=== PATIENT | male | born 1995 | race Caucasian/White ===

== ENCOUNTER 2017-12-03 22:14 | Emergency (ER) | payer OTHER ==
[2017-12-03] MEDS ORDERED: NS(*) 0.9% 1000 ML BAG 1,000 ML IV ONE (22:43)
[2017-12-03] MEDS ORDERED: ONDANSETRON 4 MG/2 ML VIAL IVP ONE (22:45)
[2017-12-03] MEDS ORDERED: fentaNYL CITR 100 MCG/2 ML AMP IVP ONE (22:55)
--- NOTE | 2017-12-03 23:09 | ER Report ---
History and Physical Time Seen By MD: 22:45 Hx. of Stated Complaint: Pt returned from [place] thursday and diarrhea and nausea began on thursday. Pt states he thinks he has a parasite. No known fevers. No rashes. No reported other sickness from friends in [place]. Pt has been trying to keep drinking. Pt did not drink water in [place] but ate fruit and vegetables. HPI/ROS CHIEF COMPLAINT: Diarrhea, nausea, abdominal pain. HISTORY OF PRESENT ILLNESS: Patient is a 21-year-old male here with complaints of diffuse abdominal pain, nausea, diarrhea. He reportedly returned from [place] on Thursday this week and his nausea and diarrhea started on Thursday. Patient is tolerating oral intake however reports nausea with oral intake. Denies any blood in the stools however he does report having 8-10 loose bowel movements per day. Patient reports that he was vacationing in [facility] and denies drinking or eating out of the resort. He reports that he did eat fruit and vegetables. Patient is afebrile, hemodynamically stable at time of evaluation. Denies fevers , chills, shortness breath, chest pain. He does admit to sore throat and headaches. REVIEW OF SYSTEMS: Constitutional: No fever, no chills. Eyes: No discharge. ENT: No sore throat. Cardiovascular: No chest pain, no palpitations. Respiratory: No cough, no shortness of breath. Gastrointestinal: + diffuse abdominal pain, no vomiting, + nausea Genitourinary: No hematuria. Musculoskeletal: No back pain. Skin: No rashes. Neurological: No headache. Allergies: Coded Allergies: No Known Drug Allergies (Unverified , 12/03/17) Home Meds Active Scripts Ciprofloxacin Hcl (CIPROFLOXACIN HCL) 500 Mg Tablet, 500 MG PO Q12H for 5 Days, #10 TAB Prov:ARLEN GAYLE DO 12/03/17 Ondansetron (ZOFRAN ODT) 4 Mg Tab.rapdis, 4 MG PO Q6H Y for NAUSEA/VOMITING, # 20 TAB.ELLY 0 Refills Prov:ARLEN GAYLE DO 12/03/17 Constitutional Vital Sign - Last 24 Hours 12/03/17 12/03/17 12/03/17 12/03/17 22:20 22:21 22:23 22:29 Temp 98.6 Pulse 86 83 Resp 16 B/P (MAP) 152/87 (108) 152/87 154/93 (113) Pulse Ox 95 96 O2 Delivery Room Air 12/03/17 12/03/17 12/03/17 12/03/17 22:30 22:30 22:44 22:45 Temp 100.4 Pulse 81 B/P (MAP) 154/102 (119) 130/80 (97) Pulse Ox 93 12/03/17 12/03/17 12/03/17 12/03/17 22:59 23:00 23:14 23:15 Pulse 92 91 B/P (MAP) 149/99 (116) 135/80 (98) Pulse Ox 96 94 12/03/17 12/03/17 12/03/17 23:29 23:30 23:44 Pulse 81 B/P (MAP) 149/76 (100) Pulse Ox 94 94 Physical Exam General Appearance: The patient is alert, has no immediate need for airway protection and no signs of toxicity. No acute distress Eyes: Pupils equal and round no pallor or injection. ENT, Mouth: Mucous membranes are moist. Respiratory: There are no retractions, lungs are clear to auscultation. Cardiovascular: Regular rate and rhythm. Gastrointestinal: Abdomen is soft and + diffusely tender, no masses, bowel sounds normal. Neurological: No focal deficits Skin: Warm and dry, no rashes. Musculoskeletal: Neck is supple non tender. Extremities are nontender, nonswollen and have full range of motion. DIFFERENTIAL DIAGNOSIS: After history and physical exam differential diagnosis was considered for viral gastroenteritis, food poisoning, food borne bacterial illness, intra-abdominal infection, parasite. Medical Decision Making Data Points Result Diagram: 12/03/17 2305 12/03/17 2305 Laboratory Hematology Test 12/03/17 22:22 12/03/17 23:05 12/03/17 23:50 Urine Color Colorless Urine Clarity Clear Urine pH 6.0 pH (4.8-9.5) Urine Specific [place] 1.004 Urine Protein Negative mg/dL (NEGATIVE) Urine Glucose (UA) Negative mg/dL (NEGATIVE) Urine Ketones Negative mg/dL (NEGATIVE) Urine Blood Negative (NEGATIVE) Urine Nitrite Negative (NEGATIVE) Urine Bilirubin Negative (NEGATIVE) Urine Urobilinogen Negative mg/dL (0.2-1.9) Urine Leukocyte Esterase Negative (NEGATIVE) Urine RBC None /HPF (0-2/HPF) Urine WBC <1 /HPF (0-5/HPF) Urine Squamous Epithelial Cells None /LPF (</=FEW) Urine Bacteria Negative /HPF (NONE-FEW) Urine Mucus None /HPF (NONE-FEW) Red Blood Count 5.34 M/uL (4.00-5.60) Mean Corpuscular Volume 87.6 fL (80.0-96.0) Mean Corpuscular Hemoglobin 29.5 pg (26.0-33.0) Mean Corpuscular Hemoglobin Concent 33.6 g/dL (32.0-36.0) Red Cell Distribution Width 13.6 % (11.5-14.5) Mean Platelet Volume 10.2 fL (7.2-11.1) Neutrophils (%) (Auto) 78.6 % (39.4-72.5) Lymphocytes (%) (Auto) 10.6 % (17.6-49.6) Monocytes (%) (Auto) 8.1 % (4.1-12.4) Eosinophils (%) (Auto) 2.0 % (0.4-6.7) Basophils (%) (Auto) 0.7 % (0.3-1.4) Nucleated RBC Relative Count (auto) 0.0 /100WBC Neutrophils # (Auto) 10.2 K/uL (2.0-7.4) Lymphocytes # (Auto) 1.4 K/uL (1.3-3.6) Monocytes # (Auto) 1.0 K/uL (0.3-1.0) Eosinophils # (Auto) 0.3 K/uL (0.0-0.5) Basophils # (Auto) 0.1 K/uL (0.0-0.1) Nucleated RBC Absolute Count (auto) 0.00 K/uL Sodium Level 139 mmol/L (137-145) Potassium Level 3.5 mmol/L (3.5-5.0) Chloride Level 104 mmol/L (98-107) Carbon Dioxide Level 27 mmol/L (22-30) Blood Urea Nitrogen 12 mg/dl (9-21) Creatinine 1.30 mg/dl (0.66-1.25) Glomerular Filtration Rate Calc > 60.0 Random Glucose 107 mg/dl (75-110) Calcium Level 9.2 mg/dl (8.4-10.2) Total Bilirubin 0.5 mg/dl (0.2-1.3) Aspartate Amino Transf (AST/SGOT) 26 U/L (0-35) Alanine Aminotransferase (ALT/SGPT) 30 U/L (0-56) Alkaline Phosphatase 100 U/L (0-126) Total Protein 7.3 g/dl (6.3-8.2) Albumin 4.3 g/dl (3.5-5.0) Lipase 73 U/L (23-300) Chemistry Test 12/03/17 22:22 12/03/17 23:05 12/03/17 23:50 Urine Color Colorless Urine Clarity Clear Urine pH 6.0 pH (4.8-9.5) Urine Specific [place] 1.004 Urine Protein Negative mg/dL (NEGATIVE) Urine Glucose (UA) Negative mg/dL (NEGATIVE) Urine Ketones Negative mg/dL (NEGATIVE) Urine Blood Negative (NEGATIVE) Urine Nitrite Negative (NEGATIVE) Urine Bilirubin Negative (NEGATIVE) Urine Urobilinogen Negative mg/dL (0.2-1.9) Urine Leukocyte Esterase Negative (NEGATIVE) Urine RBC None /HPF (0-2/HPF) Urine WBC <1 /HPF (0-5/HPF) Urine Squamous Epithelial Cells None /LPF (</=FEW) Urine Bacteria Negative /HPF (NONE-FEW) Urine Mucus None /HPF (NONE-FEW) White Blood Count 13.0 k/uL (4.5-11.0) Red Blood Count 5.34 M/uL (4.00-5.60) Hemoglobin 15.7 g/dL (14.0-18.0) Hematocrit 46.8 % (42.0-52.0) Mean Corpuscular Volume 87.6 fL (80.0-96.0) Mean Corpuscular Hemoglobin 29.5 pg (26.0-33.0) Mean Corpuscular Hemoglobin Concent 33.6 g/dL (32.0-36.0) Red Cell Distribution Width 13.6 % (11.5-14.5) Platelet Count 188 K/uL (150-450) Mean Platelet Volume 10.2 fL (7.2-11.1) Neutrophils (%) (Auto) 78.6 % (39.4-72.5) Lymphocytes (%) (Auto) 10.6 % (17.6-49.6) Monocytes (%) (Auto) 8.1 % (4.1-12.4) Eosinophils (%) (Auto) 2.0 % (0.4-6.7) Basophils (%) (Auto) 0.7 % (0.3-1.4) Nucleated RBC Relative Count (auto) 0.0 /100WBC Neutrophils # (Auto) 10.2 K/uL (2.0-7.4) Lymphocytes # (Auto) 1.4 K/uL (1.3-3.6) Monocytes # (Auto) 1.0 K/uL (0.3-1.0) Eosinophils # (Auto) 0.3 K/uL (0.0-0.5) Basophils # (Auto) 0.1 K/uL (0.0-0.1) Nucleated RBC Absolute Count (auto) 0.00 K/uL Glomerular Filtration Rate Calc > 60.0 Calcium Level 9.2 mg/dl (8.4-10.2) Total Bilirubin 0.5 mg/dl (0.2-1.3) Aspartate Amino Transf (AST/SGOT) 26 U/L (0-35) Alanine Aminotransferase (ALT/SGPT) 30 U/L (0-56) Alkaline Phosphatase 100 U/L (0-126) Total Protein 7.3 g/dl (6.3-8.2) Albumin 4.3 g/dl (3.5-5.0) Lipase 73 U/L (23-300) Urinalysis Test 12/03/17 22:22 Urine Color Colorless Urine Clarity Clear Urine pH 6.0 pH (4.8-9.5) Urine Specific [place] 1.004 Urine Protein Negative mg/dL (NEGATIVE) Urine Glucose (UA) Negative mg/dL (NEGATIVE) Urine Ketones Negative mg/dL (NEGATIVE) Urine Blood Negative (NEGATIVE) Urine Nitrite Negative (NEGATIVE) Urine Bilirubin Negative (NEGATIVE) Urine Urobilinogen Negative mg/dL (0.2-1.9) Urine Leukocyte Esterase Negative (NEGATIVE) Urine RBC None /HPF (0-2/HPF) Urine WBC <1 /HPF (0-5/HPF) Urine Squamous Epithelial Cells None /LPF (</=FEW) Urine Bacteria Negative /HPF (NONE-FEW) Urine Mucus None /HPF (NONE-FEW) EKG/Imaging Imaging KUB SINGLE VIEW ABDOMEN Indication: Abdominal pain. Comparison: None. Findings: Normal bowel gas pattern is seen. There is no free air. Lung bases are clear. IMPRESSION: Normal abdomen radiograph. ED Course/Re-evaluation ED Course Patient is a 21-year-old male here with complaints of diarrhea, abdominal pain after going on a to trip to [place]. Patient reports that the symptoms developed on Thursday after returning on Thursday from the trip. Patient has been able to tolerate oral intake and his electrolytes and fluid status are unremarkable. White blood cell count was mildly elevated which is a nonspecific finding and consistent with current symptoms. Patient KUB showed no acute blockages or large stool burden. Patient was given a liter fluid, analgesia and antiemetics with moderate relief of symptoms. He was given his 1st dose of Cipro and a prescription for 5 days twice a day. He was also advised to hydrate aggressively , take Zofran as needed for nausea and to complete course of antibiotics. Patient voiced understanding of plan and reasons to return promptly. Decision to Disposition Date: Dec 04, 2017 Decision to Disposition Time: 00:02 Depart Departure Latest Vital Signs Vital Signs Date Time Temp Pulse Resp B/P (MAP) Pulse Ox O2 Delivery O2 Flow Rate FiO2 12/03/17 23:44 94 12/03/17 23:30 149/76 (100) 12/03/17 23:29 81 12/03/17 22:30 100.4 12/03/17 22:21 16 Room Air Impression: Primary Impression: Diarrhea Additional Impression: Abdominal pain Condition: Improved Disposition: HOME OR SELF-CARE New Scripts Ciprofloxacin Hcl (CIPROFLOXACIN HCL) 500 Mg Tablet 500 MG PO Q12H for 5 Days, #10 TAB Prov: ARLEN GAYLE DO 12/03/17 Ondansetron (ZOFRAN ODT) 4 Mg Tab.rapdis 4 MG PO Q6H Y for NAUSEA/VOMITING, #20 TAB.ELLY 0 Refills Prov: ARLEN GAYLE DO 12/03/17 Patient Instructions: Acute Diarrhea (ED), Ciprofloxacin (By mouth), Ondansetron (By mouth, Into the mouth) Additional Instructions: Please take one tablet of ciprofloxacin twice daily for treatment of suspected bacterial diarrhea. You may take 1 tablet of Zofran every 6-8 hours as needed for nausea. You may take Imodium 1 tablet every 8 hours as needed for diarrhea. Please return promptly should develop worsening abdominal pain, fevers, nausea, vomiting, blood in the stool or urine. Please follow-up with your family doctor next week. If the patient develops pain in the right lower quadrant of the abdomen please return promptly. Problem Qualifiers ARLEN GAYLE DO Dec 03, 2017 23:09
[2017-12-03 23:13] LABS: PLATELET COUNT, AUTOMATED 188 K/uL (150-450)
--- NOTE | 2017-12-03 23:41 | RADIOLOGY IMAGING REPORT ---
FAC[facility]: [facility] PATIENT NAME: Brittany Rosario : 1995 MR: [id number] V: [id number] EXAM DATE: ORDERING PHYSICIAN: ARLEN GAYLE TECHNOLOGIST: Location: [facility] Patient: Brittany Rosario : 1995 Visit/Account:[id number] Date of Sevice: 12/03/2017 KUB SINGLE VIEW ABDOMEN Indication: Abdominal pain. Comparison: None. Findings: Normal bowel gas pattern is seen. There is no free air. Lung bases are clear. IMPRESSION: Normal abdomen radiograph. Report Dictated By: Nick Gabriel at 12/03/2017 11:36 PM Report E-Signed By: Nick Gabriel at 12/03/2017 11:37 PM WSN:[id number]
[2017-12-03] MEDS ORDERED: ONDA4TAB PO (23:59)
[2017-12-03] MEDS ORDERED: CIPR-214 PO (23:59)
[2017-12-04] VITALS: BP 128/72
[2017-12-04] MEDS ORDERED: CIPROFLOXACIN 500 MG TAB PO ONE
== END 2017-12-04 00:24 | disposition home or self-care (01) ==
LOC: ER 22:37
DX: R19.7 Diarrhea, unspecified (principal); R10.9 Unspecified abdominal pain
CPT/HCPCS: 74018; 81001; 83630; 83690; 85025; 87045; 96374; 96375; 99284; J2405; J3010; J7030; 82040; 82247; 82310; 82374; 82435; 82565; 82947; 84075; 84132; 84155; 84295; 84450; 84460; 84520